=== PATIENT | male | born 1955 | race Caucasian/White ===

== ENCOUNTER → 2017-05-10 | Outpatient (CLI) | payer OTHER, MEDICARE ==
[~2017-05-10] MED LIST: ALDACTONE25 MG PO; ASACOL HD800 MG PO; ASPIRIN EC81 M1 PO; ATENOLOL 50MG T50 M1 PO; BENADRYL25 MG PO; BENTYL 20 MG TA20 M1 PO; BIOTENE ORALB44.3 ML MM; CHLORPROMAZINE25 M1 PO; CIPRO500 MG PO; CLONAZEPAM 0.50.5 M1 PO; COZAAR100 MG PO; CRESTOR10 MG PO; DEPAKOTE ER500 MG PO; FISH OIL 1,001000 M2 PO; FOLIC ACID0.4 MG PO; INDAPAMIDE1.25 MG PO; K-DUR10 MEQ PO; LEVAQUIN 750 M750 MG PO; LISINOPRIL40 MG PO; MAGIC MOUTHWASH; ONDANSETRON HCL4 M2 PO; PLAVIX 75 MG TA75 M1 PO; SENOKOT-S1 TA1 PO; ZOCOR5 MG PO; ZOLOFT100 MG PO; ZYRTEC10 M4 PO
== END ==
LOC: ULTRA 10:59
DX: C91.12 Chronic lymphocytic leukemia of B-cell type in relapse (principal); N28.9 Disorder of kidney and ureter, unspecified; N39.0 Urinary tract infection, site not specified; R82.90 Unspecified abnormal findings in urine

== ENCOUNTER → 2018-07-26 | Outpatient (CLI) | payer OTHER, MEDICARE | LOC: CAT 12:06 | DX: I67.82 Cerebral ischemia (principal); G31.9 Degenerative disease of nervous system, unspecified; I70.90 Unspecified atherosclerosis; G44.51 Hemicrania continua; R41.3 Other amnesia ==

== ENCOUNTER 2018-09-01 20:50 | Emergency (ER) | payer OTHER, MEDICARE ==
[~2018-09-01] VITALS: Ht 182.9 cm; Wt 108.9 kg
[2018-09-01] MEDS ORDERED: PRADAXA150 MG PO (21:22)
[2018-09-01 22:57] LABS: ABSOLUTE NEUTROPHILS 2.5 thou/uL (1.4-8.2); BASOPHILS 2.1 % (0.0-2.0); EOSINOPHILS 1.8 % (0.0-3.0); HEMATOCRIT 36.2 % (42.0-52.0); HEMOGLOBIN 12.9 gm/dL (14.0-18.0); LYMPHOCYTES 33.9 % (24.0-44.0); MCH 32.5 pg (26.0-34.0); MCHC 35.6 g/dL (28.0-37.0); MCV 91.3 fL (80.0-100.0); MONOCYTES 9.4 % (1.0-8.0); PLATELET COUNT 203 thou/uL (150-400); POLYS 52.8 % (36.0-66.0); RBC 3.97 mil/uL (4.50-6.00); RDW 13.7 % (10.5-14.5); WBC 4.7 thou/uL (4.0-11.0)
[2018-09-02 00:29] VITALS: BP 133/69
== END 2018-09-02 00:29 | disposition home or self-care (01) ==
LOC: ER 20:50
PROVIDERS: Emergency Medicine
DX: S50.311A Abrasion of right elbow, initial encounter (principal); I25.10 Atherosclerotic heart disease of native coronary artery without angina pectoris; I10 Essential (primary) hypertension; E78.00 Pure hypercholesterolemia, unspecified; F32.9 Major depressive disorder, single episode, unspecified; F17.210 Nicotine dependence, cigarettes, uncomplicated; Z86.14 Personal history of Methicillin resistant Staphylococcus aureus infection; Z88.8 Allergy status to other drugs, medicaments and biological substances; X58.XXXA Exposure to other specified factors, initial encounter; Y93.89 Activity, other specified; Y92.89 Other specified places as the place of occurrence of the external cause; Y99.8 Other external cause status; K50.90 Crohn's disease, unspecified, without complications

== ENCOUNTER 2019-04-02 14:25 | Emergency (ER) | payer OTHER, MEDICARE ==
[~2019-04-02] VITALS: Ht 182.9 cm; Wt 106.1 kg
[~2019-04-02 14:25] MED LIST changes: +PRADAXA150 MG PO
[2019-04-02] MEDS ORDERED: PROTONIX40 M2 PO (14:45)
[2019-04-02] MEDS ORDERED: TOLTERODINE TART4 MG PO (14:46)
[2019-04-02] MEDS ORDERED: NORVASC 2.5 MG2.5 M1 PO (14:46)
[2019-04-02] MEDS ORDERED: IRBESARTAN300 MG PO (14:47)
[2019-04-02] MEDS ORDERED: MELATONIN5 M4 PO (14:47)
[2019-04-02] MEDS ORDERED: ASACOL HD800 MG PO (14:49)
[2019-04-02 14:53] LABS: ABSOLUTE NEUTROPHILS 4.6 thou/uL (1.4-8.2); BASOPHILS 1.4 % (0.0-2.0); EOSINOPHILS 0.7 % (0.0-3.0); HEMOGLOBIN 13.9 gm/dL (14.0-18.0); MCH 31.2 pg (26.0-34.0); MCHC 34.7 g/dL (28.0-37.0); MCV 89.9 fL (80.0-100.0); MONOCYTES 9.6 % (1.0-8.0); PLATELET COUNT 237 thou/uL (150-400); POLYS 65.3 % (36.0-66.0); RBC 4.45 mil/uL (4.50-6.00); RDW 13.8 % (10.5-14.5); WBC 7.1 thou/uL (4.0-11.0)
[2019-04-02 15:04] LABS: ANION GAP 6 mmol/L (7-16); BUN 11 mg/dL (7-18); CALCIUM 9.7 mg/dL (8.5-10.1); CHLORIDE 102 mmol/L (98-107); CO2 30 mmol/L (21-32); CREATININE 0.9 mg/dL (0.7-1.3); GLUCOSE 104 mg/dL (74-106); POTASSIUM 4.4 mmol/L (3.5-5.1); SODIUM 138 mmol/L (136-145)
[2019-04-02 15:14] LABS: ALBUMIN 4.1 g/dL (3.4-5.0); SGOT 14 U/L (15-37); SGPT 12 U/L (30-65); TOTAL BILIRUBIN 0.4 mg/dL (<0.1-1.0); TOTAL PROTEIN 7.1 g/dL (6.4-8.2); TROPONIN-I <0.06 ng/mL (<0.06)
[2019-04-02 15:40] LABS: INR 1.1; PROTIME 11.2 Seconds (9.3-11.4)
[2019-04-02 18:14] VITALS: BP 176/81
--- NOTE | 2019-04-03 17:29 | EKG ---
[address] [place] [address] ELECTROCARDIOGRAM REPORT Name: BRYSON CULVER Room #: DEP Rupert#: [id number] Admission: 04/02/19 Attend Phys: Discharge: 04/02/19 Date of : 53 Report #: [id number] THIS REPORT FOR: //name// [facility] ED Test Date: 2019-04-02 Test Time: 14:23:47 Pat Name: BRYSON CULVER Department: Room: Gender: Projector Operator: quin parra : 1955 Requested By: Holly Pretty Order Number: [id number] MD: Husam Murray Measurements Intervals [place] Rate: 74 P: -41 WV: 190 QRS: 7 QRSD: 101 T: -24 QT: 342 QTc: 380 Interpretive Statements Sinus rhythm Ventricular premature complex Inferior infarct, age indeterminate Compared to ECG 10/03/2015 01:47:13 Ventricular premature complex(es) now present Electronically Signed On 04-03-2019 17:29:23 CDT by Husam Murray [email or web address] <ELECTRONICALLY SIGNED> By: Husam Murray MD, [facility] 04/03/19 1729 1423 1423 Husam Murray MD, [facility] /EPI
== END 2019-04-02 18:20 | disposition home or self-care (01) ==
LOC: ER 14:25
PROVIDERS: Physician Assistant
DX: R07.89 Other chest pain (principal); R00.2 Palpitations; R11.0 Nausea; K50.90 Crohn's disease, unspecified, without complications; I10 Essential (primary) hypertension; E78.00 Pure hypercholesterolemia, unspecified; F32.9 Major depressive disorder, single episode, unspecified; I25.10 Atherosclerotic heart disease of native coronary artery without angina pectoris; I25.2 Old myocardial infarction; F17.210 Nicotine dependence, cigarettes, uncomplicated; Z86.14 Personal history of Methicillin resistant Staphylococcus aureus infection; Z88.8 Allergy status to other drugs, medicaments and biological substances

== ENCOUNTER → 2019-12-02 | Outpatient (CLI) | payer OTHER, MEDICARE ==
[~2019-12-02] MED LIST changes: +IRBESARTAN300 MG PO; +MELATONIN5 M4 PO; +NORVASC 2.5 MG2.5 M1 PO; +PROTONIX40 M2 PO; +TOLTERODINE TART4 MG PO
== END ==
LOC: SJCVCIMAG 08:37
PROVIDERS: ATTEND Internal Medicine Cardiovascular Disease
DX: I73.9 Peripheral vascular disease, unspecified (principal); R00.1 Bradycardia, unspecified; R94.31 Abnormal electrocardiogram [ECG] [EKG]; I25.10 Atherosclerotic heart disease of native coronary artery without angina pectoris; I10 Essential (primary) hypertension; E78.00 Pure hypercholesterolemia, unspecified; K50.919 Crohn's disease, unspecified, with unspecified complications; I82.412 Acute embolism and thrombosis of left femoral vein; E78.5 Hyperlipidemia, unspecified; F17.210 Nicotine dependence, cigarettes, uncomplicated; Z79.899 Other long term (current) drug therapy; Z82.49 Family history of ischemic heart disease and other diseases of the circulatory system; Z86.718 Personal history of other venous thrombosis and embolism; Z87.820 Personal history of traumatic brain injury; Z95.820 Peripheral vascular angioplasty status with implants and grafts

== ENCOUNTER 2020-03-19 18:52 | Emergency (ER) | payer OTHER, MEDICARE ==
[2020-03-19 20:15] LABS: ABSOLUTE NEUTROPHILS 2.6 thou/uL (1.4-8.2); EOSINOPHILS 2.3 % (0.0-3.0); HEMATOCRIT 36.8 % (42.0-52.0); HEMOGLOBIN 12.6 gm/dL (14.0-18.0); LYMPHOCYTES 38.5 % (24.0-44.0); MCH 30.8 pg (26.0-34.0); MCHC 34.2 g/dL (28.0-37.0); MCV 89.9 fL (80.0-100.0); MONOCYTES 9.1 % (1.0-8.0); PLATELET COUNT 208 thou/uL (150-400); POLYS 48.1 % (36.0-66.0); RBC 4.09 mil/uL (4.50-6.00); RDW 14.1 % (10.5-14.5); WBC 5.3 thou/uL (4.0-11.0)
[2020-03-19 20:19] LABS: ANION GAP 9 mmol/L (7-16); BUN 11 mg/dL (7-18); CHLORIDE 103 mmol/L (98-107); CO2 27 mmol/L (21-32); CREATININE 1.2 mg/dL (0.7-1.3); GLUCOSE 81 mg/dL (74-106); POTASSIUM 4.1 mmol/L (3.5-5.1); SODIUM 139 mmol/L (136-145)
[2020-03-19 20:29] LABS: MAGNESIUM 1.7 mg/dL (1.8-2.4); TROPONIN-I <0.06 ng/mL (<0.06)
[2020-03-19 20:38] VITALS: BP 138/78
--- NOTE | 2020-03-20 07:36 | EKG ---
[facility] [place] [address] ELECTROCARDIOGRAM REPORT Name: BRYSON CULVER [id number] Admission: 03/19/20 Attend Phys: Discharge: 03/19/20 Date of : 53 Report #: [id number] THIS REPORT FOR: cc: Ron Perez MD, Michael B. MD Lundgren,Husam Hollis MD [facility] ~ THIS REPORT FOR: //name// [facility] ED Test Date: 2020-03-19 Test Time: 19:33:49 Pat Name: BRYSON CULVER Department: Room: Gender: Environmental Health Technician: taapn álvarez : 1955 Requested By: Ron Luna Order Number: [id number] MD: Husam Murray Measurements Intervals [place] Rate: 66 P: 38 UT: 203 QRS: 7 QRSD: 105 T: QT: 404 QTc: 424 Interpretive Statements Sinus rhythm Inferior infarct, age indeterminate T wave abnormality Compared to ECG 04/02/2019 14:23:47 ST (T wave) deviation now present Ventricular premature complex(es) no longer present Electronically Signed On 03-20-2020 7:36:18 CDT by Husam Murray [email or web address] <ELECTRONICALLY SIGNED> By: Husam Murray MD, [facility] 03/20/20 0736 32 32 Husam Murray MD, [facility] /EPI
== END 2020-03-19 20:45 | disposition home or self-care (01) ==
LOC: ER 18:52
PROVIDERS: Emergency Medicine
DX: I95.9 Hypotension, unspecified (principal); T42.8X5A Adverse effect of antiparkinsonism drugs and other central muscle-tone depressants, initial encounter; R41.82 Altered mental status, unspecified; I25.2 Old myocardial infarction; M25.551 Pain in right hip; I10 Essential (primary) hypertension; I25.10 Atherosclerotic heart disease of native coronary artery without angina pectoris; E78.00 Pure hypercholesterolemia, unspecified; F32.9 Major depressive disorder, single episode, unspecified; F17.210 Nicotine dependence, cigarettes, uncomplicated; Z79.899 Other long term (current) drug therapy; Z95.5 Presence of coronary angioplasty implant and graft; Z88.8 Allergy status to other drugs, medicaments and biological substances; Y92.098 Other place in other non-institutional residence as the place of occurrence of the external cause

== ENCOUNTER → 2020-06-22 | Outpatient (CLI) | payer OTHER, MEDICARE ==
[~2020-06-22] VITALS: Ht 182.9 cm; Wt 104.3 kg
[~2020-06-22] MED LIST changes: +ASA81BEC PO; +CARVEDILOL6.25 M1 PO; +EFFER-K 10 MEQ10 ME1 PO; +SPIRONOLACTONE25 M1 PO
[2020-06-22 07:33] VITALS: BP 141/77
--- NOTE | 2020-06-22 17:32 | CATHLAB ---
[facility] [place] [address] INVASIVE PROCEDURE REPORT Name: BRYSON CULVER Room #: REG CARMEN Montano.#: [id number] Admission: 06/22/20 Attend Phys: Jeff Rice MD, Discharge: Date of : 53 Report #: [id number] THIS REPORT FOR: cc: Mariusz Ferrari MD, Roman S. MD Mancuso, Gerald M. MD [facility] ~ APPROVED REPORT Study performed: 06/22/2020 07:31:43 Patient Details Patient Status: Out-Patient Room #: The patient is a 64 year-old male Event Personnel Jeff Rice Visual C Developer, Kelly Kim RTR, Fady العراقي Sherra RTR Monitor, Cb Rain RN electromatic typist Performed Art Access - L femoral artery* Don Access - R femoral vein Right and Left Heart Cath w/or w/o Coronarie 1895695 [facility] Aortogram Abdominal Peripheral Angio 303186 75615 Initial Mod Sed Same Phys/QHP Gr5y 222371 57045 Mod Sed Same Phys/QHP Ea 080486 Indication Chest pain Procedure Narrative The Right Groin^ was infiltrated with 1% Lidocaine subcutaneous anesthesia. A Right Heart Catheterization was performed with a 7 Fr. [place] catheter and pressure were recorded. Cardiac outputs were obtained by the Thermal Dilution method. A PINNACLE 6FR Sheath #[id number] sheath was inserted into the RFA^. Coronary angiography was performed using coronary diagnostic catheters. The right coronary system was accessed and visualized with a JR4 catheter. The left coronary system was accessed and visualized with a JL4 catheter. The left ventricle was accessed and visualized with a PIGTAIL catheter. Left ventriculogram was performed in 30 degree projection. An aortogram of the abdominal aorta was performed. Closure device was deployed with a 6 Fr MYNXGRIP 6/7F #[id number]. Hemostasis was obtained with manual pressure following sheath removal without any complications. The patient tolerated the procedure well and there were no complications associated with the procedure. There was no [address] [address] INVASIVE PROCEDURE REPORT Name: PALOMOBRYSON Tammy Room #: [facility]#: [id number] Admission: 06/22/20 Attend Phys: Jeff Rice, Discharge: Date of : 53 Report #: [id number] hematoma. Intraoperative Conscious Sedation Sedation start time: 928 Case end Time: 1012 Fentanyl 50 mcg Versed 1.5 mg Fluoro Time: 4.50 minutes Dose: DAP 56522.50 cGycm2 1186 mGy Contrast Type and Amount: Omnipaque 140 ml Hemodynamics The right atrial mean pressure is 12 mmHg. The right ventricular pressure is 48/12 mmHg. The pulmonary artery pressure is 47/20 mmHg with a mean of 34 mmHg. The mean pulmonary capillary wedge pressure is 27 mmHg. The aortic pressure is 168/80 mmHg with a mean of 28 mmHg. The left ventricular pressure is 186/3 mmHg with a mean of mmHg. The left ventricular end diastolic pressure is 36 mmHg. The cardiac output using thermo method is 4.40 L/min. The cardiac index using thermo method is 1.95 L/min/m2. Conclusion #1. 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 #3 left main mild distal tapered narrowing giving rise to LAD and circumflex. #4 LAD proximal stent with mild diffuse distal disease proximally widely patent. Extends around the apex. # 5 circumflex OM small nondominant no occlusive disease #6 dominant right coronary with proximal stents placed and mid distal stent with mild in-stent restenosis filling a large dominant PDA JASON. No occlusive disease #7 successful right heart catheterization with moderate volume pulmonary pressure elevation. See above hemodynamics. Recommendations and plan: Continue aggressive risk factor modification. Additional salt and fluid restriction. Daily weights. Additional diuretic and increase carvedilol. <ELECTRONICALLY SIGNED> By: Jeff Rice MD, FACC 06/22/201731 31 31 Jeff Rice MD, FACC /INF
== END | disposition home or self-care (01) ==
LOC: CATH 06:25
PROVIDERS: ATTEND Internal Medicine Cardiovascular Disease
DX: R07.9 Chest pain, unspecified (principal); I25.10 Atherosclerotic heart disease of native coronary artery without angina pectoris; I77.811 Abdominal aortic ectasia; I10 Essential (primary) hypertension; E78.00 Pure hypercholesterolemia, unspecified; I42.9 Cardiomyopathy, unspecified; K50.90 Crohn's disease, unspecified, without complications; F32.9 Major depressive disorder, single episode, unspecified; Z98.890 Other specified postprocedural states; Z79.899 Other long term (current) drug therapy; Z88.8 Allergy status to other drugs, medicaments and biological substances

== ENCOUNTER → 2020-08-03 | Outpatient (CLI) | payer OTHER, MEDICARE | LOC: SJCVCIMAG 07:34 | PROVIDERS: ATTEND Internal Medicine Cardiovascular Disease | DX: I25.10 Atherosclerotic heart disease of native coronary artery without angina pectoris (principal); I42.9 Cardiomyopathy, unspecified; I10 Essential (primary) hypertension; E78.00 Pure hypercholesterolemia, unspecified; I65.23 Occlusion and stenosis of bilateral carotid arteries; I73.9 Peripheral vascular disease, unspecified; C91.92 Lymphoid leukemia, unspecified, in relapse; F17.210 Nicotine dependence, cigarettes, uncomplicated; Z86.718 Personal history of other venous thrombosis and embolism; Z72.89 Other problems related to lifestyle; Z79.899 Other long term (current) drug therapy; Z88.5 Allergy status to narcotic agent; Z88.1 Allergy status to other antibiotic agents ==

== ENCOUNTER → 2020-08-05 | Outpatient (CLI) | payer OTHER, MEDICARE ==
[~2020-08-05] MED LIST changes: +TORSEMIDE20 MG PO
== END ==
LOC: SJCVCIMAG 07:50
PROVIDERS: ATTEND Internal Medicine Cardiovascular Disease
DX: I70.1 Atherosclerosis of renal artery (principal); N28.1 Cyst of kidney, acquired; I10 Essential (primary) hypertension; E78.00 Pure hypercholesterolemia, unspecified; K50.90 Crohn's disease, unspecified, without complications; G40.909 Epilepsy, unspecified, not intractable, without status epilepticus; I73.9 Peripheral vascular disease, unspecified; F32.9 Major depressive disorder, single episode, unspecified; Z86.718 Personal history of other venous thrombosis and embolism; Z95.1 Presence of aortocoronary bypass graft

== ENCOUNTER → 2020-08-12 | Outpatient (CLI) | payer OTHER, MEDICARE ==
[~2020-08-12] VITALS: Ht 182.9 cm; Wt 103.4 kg
[2020-08-12 07:23] VITALS: BP 139/72
[2020-08-12 07:35] LABS: HEMATOCRIT 37.4 % (42.0-52.0); HEMOGLOBIN 12.7 gm/dL (14.0-18.0); MCH 30.3 pg (26.0-34.0); MCV 89.2 fL (80.0-100.0); RBC 4.19 mil/uL (4.50-6.00); RDW 13.9 % (10.5-14.5); WBC 7.1 thou/uL (4.0-11.0)
[2020-08-12 07:50] LABS: CALCIUM 9.1 mg/dL (8.5-10.1); CREATININE 1.2 mg/dL (0.7-1.3)
== END | disposition home or self-care (01) ==
LOC: CATH 06:48
PROVIDERS: ATTEND Nuclear Medicine Nuclear Cardiology
DX: I70.1 Atherosclerosis of renal artery (principal); I15.0 Renovascular hypertension; I70.203 Unspecified atherosclerosis of native arteries of extremities, bilateral legs; I10 Essential (primary) hypertension; I25.2 Old myocardial infarction; I25.10 Atherosclerotic heart disease of native coronary artery without angina pectoris; E78.00 Pure hypercholesterolemia, unspecified; K50.90 Crohn's disease, unspecified, without complications; F32.9 Major depressive disorder, single episode, unspecified; F17.210 Nicotine dependence, cigarettes, uncomplicated; Z98.890 Other specified postprocedural states; Z79.899 Other long term (current) drug therapy; Z86.73 Personal history of transient ischemic attack (TIA), and cerebral infarction without residual deficits; Z88.8 Allergy status to other drugs, medicaments and biological substances

== ENCOUNTER 2020-09-24 18:48 | Emergency (ER) | payer OTHER, MEDICARE ==
[~2020-09-24] VITALS: Ht 182.9 cm; Wt 110.2 kg
[2020-09-24 19:52] LABS: URINE BILIRUBIN NEGATIVE (Negative); URINE BLOOD NEGATIVE (Negative); URINE CLARITY CLEAR; URINE COLOR YELLOW; URINE GLUCOSE-RANDOM* NEGATIVE (Negative); URINE KETONES NEGATIVE (Negative); URINE LEUKOCYTES-REFLEX NEGATIVE (Negative); URINE NITRITE-REFLEX NEGATIVE (Negative); URINE PROTEIN (DIPSTICK) NEGATIVE (Negative); URINE SPECIFIC GRAVITY 1.025 (1.005-1.035); URINE UROBILINOGEN 0.2 E.U./dl (0.2-1.0)
[2020-09-24 19:54] LABS: ABSOLUTE NEUTROPHILS 4.4 thou/uL (1.4-8.2); BASOPHILS 1.1 % (0.0-2.0); EOSINOPHILS 2.7 % (0.0-3.0); HEMATOCRIT 34.7 % (42.0-52.0); HEMOGLOBIN 11.5 gm/dL (14.0-18.0); LYMPHOCYTES 34.2 % (24.0-44.0); MCHC 33.3 g/dL (28.0-37.0); MCV 87.1 fL (80.0-100.0); MONOCYTES 10.2 % (1.0-8.0); PLATELET COUNT 270 thou/uL (150-400); POLYS 51.8 % (36.0-66.0); RBC 3.98 mil/uL (4.50-6.00); RDW 14.7 % (10.5-14.5); WBC 8.5 thou/uL (4.0-11.0)
[2020-09-24 19:55] LABS: ANION GAP 7 mmol/L (7-16); BUN 15 mg/dL (7-18); CALCIUM 8.9 mg/dL (8.5-10.1); CHLORIDE 103 mmol/L (98-107); CO2 30 mmol/L (21-32); CREATININE 1.1 mg/dL (0.7-1.3); GLUCOSE 135 mg/dL (74-106); POTASSIUM 4.4 mmol/L (3.5-5.1); SODIUM 140 mmol/L (136-145)
[2020-09-24 20:01] LABS: ALBUMIN 3.7 g/dL (3.4-5.0); DIRECT BILIRUBIN < 0.1 mg/dL (<0.1-0.2); LIPASE 1199 U/L (73-393); SGOT 13 U/L (15-37); SGPT 19 U/L (16-63); TOTAL BILIRUBIN 0.3 mg/dL (0.2-1.0); TOTAL PROTEIN 7.2 g/dL (6.4-8.2)
[2020-09-24] MEDS ORDERED: DOXYCYCLINE 10100 MG PO (22:22)
[2020-09-24 22:38] VITALS: BP 168/68
--- NOTE | 2020-09-25 07:54 | EKG ---
[address] [place] [address] ELECTROCARDIOGRAM REPORT Name: BRYSON CULVER [id number] Admission: 09/24/20 Attend Phys: Discharge: 09/24/20 Date of : 53 Report #: [id number] [facility] ED Test Date: 2020-09-24 Test Time: 20:06:45 Pat Name: BRYSON CULVER Department: Room: Gender: M Fluid Power Mechanic: ke : 1955 Requested By: Maurice Bingham Order Number: [id number] MD: Husam Murray Measurements Intervals [place] Rate: 61 P: 3 WV: 215 QRS: 2 QRSD: 106 T: -5 QT: 420 QTc: 423 Interpretive Statements Sinus rhythm Borderline prolonged WV interval Inferior infarct, old Compared to ECG 03/19/2020 19:33:49 T-wave abnormality no longer present Electronically Signed On 09-25-2020 7:54:32 CDT by Husam Murray [email or web address] <ELECTRONICALLY SIGNED> By: Husam Murray MD, [facility] 09/25/20 0754 05 05 Husam Murray MD, FACC /EPI
== END 2020-09-24 22:39 | disposition home or self-care (01) ==
LOC: ER 18:48
PROVIDERS: Nurse Practitioner
DX: L03.312 Cellulitis of back [any part except buttock and flank] (principal); L02.212 Cutaneous abscess of back [any part, except buttock and flank]; R19.7 Diarrhea, unspecified; I10 Essential (primary) hypertension; F17.210 Nicotine dependence, cigarettes, uncomplicated; Z79.899 Other long term (current) drug therapy; Z88.8 Allergy status to other drugs, medicaments and biological substances

== ENCOUNTER → 2020-10-01 | Outpatient (CLI) | payer OTHER, MEDICARE ==
[~2020-10-01] MED LIST changes: +DOXYCYCLINE 10100 MG PO
== END ==
LOC: HYPER 13:21
PROVIDERS: ATTEND Emergency Medicine
DX: T81.89XA Other complications of procedures, not elsewhere classified, initial encounter (principal); L02.212 Cutaneous abscess of back [any part, except buttock and flank]; L98.422 Non-pressure chronic ulcer of back with fat layer exposed; I25.119 Atherosclerotic heart disease of native coronary artery with unspecified angina pectoris; K50.919 Crohn's disease, unspecified, with unspecified complications; I10 Essential (primary) hypertension; E78.00 Pure hypercholesterolemia, unspecified; C91.10 Chronic lymphocytic leukemia of B-cell type not having achieved remission; M19.90 Unspecified osteoarthritis, unspecified site; F32.9 Major depressive disorder, single episode, unspecified; F41.9 Anxiety disorder, unspecified; F17.200 Nicotine dependence, unspecified, uncomplicated; Z86.14 Personal history of Methicillin resistant Staphylococcus aureus infection; Z86.16 Personal history of COVID-19; Z98.890 Other specified postprocedural states; Z79.899 Other long term (current) drug therapy; Y83.8 Other surgical procedures as the cause of abnormal reaction of the patient, or of later complication, without mention of misadventure at the time of the procedure; Y92.238 Other place in hospital as the place of occurrence of the external cause

== ENCOUNTER → 2021-02-04 | Outpatient (CLI) | payer OTHER, MEDICARE | LOC: SJCVCIMAG 07:36 | PROVIDERS: ATTEND Internal Medicine Cardiovascular Disease | DX: R94.31 Abnormal electrocardiogram [ECG] [EKG] (principal); I49.3 Ventricular premature depolarization; I25.10 Atherosclerotic heart disease of native coronary artery without angina pectoris; I42.9 Cardiomyopathy, unspecified; I10 Essential (primary) hypertension; E78.00 Pure hypercholesterolemia, unspecified; I70.202 Unspecified atherosclerosis of native arteries of extremities, left leg; E78.5 Hyperlipidemia, unspecified; Z86.718 Personal history of other venous thrombosis and embolism; Z79.899 Other long term (current) drug therapy; Z87.891 Personal history of nicotine dependence; Z72.89 Other problems related to lifestyle; Z95.820 Peripheral vascular angioplasty status with implants and grafts; Z88.5 Allergy status to narcotic agent ==